=== PATIENT | male | born 1950 | race Caucasian/White ===

== ENCOUNTER 2017-05-01 17:39 | Emergency (ER) | payer OTHER ==
[2017-05-01 18:13] LABS: BASOPHIL# 0.1 X 10^3uL (0.0-0.1); BASOPHILS 0.8 % (0.0-2.0); EOSINOPHILS# 0.2 X 10^3uL (0.0-0.4); HEMATOCRIT 48.6 % (42.0-54.0); HEMOGLOBIN 16.1 g/dL (14.0-18.0); LYMPHOCYTES 26.5 % (20.0-40.0); LYMPHOCYTES# 2.2 X 10^3uL (0.8-3.8); MEAN CELL VOLUME 87.5 fL (80.0-100.0); MEAN CORPUS. HGB CONCENTRATION 33.2 g/dL (32.0-36.0); MEAN PLATELET VOLUME 8.3 fL (7.4-10.4); MONOCYTES 10.4 % (2.0-10.0); MONOCYTES# 0.8 X 10^3uL (0.2-1.0); NEUTROPHILS 59.3 % (54.0-75.0); NEUTROPHILS# 4.8 X 10^3uL (2.6-6.7); PLATELET COUNT 240 X 10^3uL (130-440); RED BLOOD COUNT 5.55 X 10^6uL (4.20-6.10); RED CELL DISTRIBUTION WIDTH 12.4 % (11.5-14.5); WHITE BLOOD COUNT 8.1 X 10^3uL (3.9-10.7)
[2017-05-01] MEDS ORDERED: NITROGLYCERIN 0.4 MG TAB.SUBL SUBLINGUAL ONE (18:24)
[2017-05-01] MEDS ORDERED: LIDOCAINE VISCOUS 2% 15 ML UDC ONE (18:24)
[2017-05-01] MEDS ORDERED: MAG-AL PLUS XS SUSP 30 ML UDC ONE (18:24)
[2017-05-01 18:28] LABS: BLOOD UREA NITROGEN 17 mg/dL (9-20); C-REACTIVE PROTEIN 7.7 mg/L (<10.0); CALCIUM 10.5 mg/dL (8.4-10.2); CHLORIDE 97 mmol/L (98-107); CREATINE KINASE 180 U/L (55-170); EST GLOMERULAR FILTRATION RATE > 60 mL/min; GLUCOSE 148 mg/dL (70-100); POTASSIUM 2.9 mmol/L (3.5-5.1); SODIUM 138 mmol/L (137-145)
[2017-05-01 18:38] LABS: TROPONIN I < 0.012 ng/mL (0.00-0.034)
[2017-05-01] MEDS ORDERED: KETOROLAC TROMETHAMINE 30 MG/ML VIAL ONE (18:50)
--- NOTE | 2017-05-01 18:50 | RADIOLOGY REPORT ---
HISTORY: Gastroesophageal reflux disease. COMPARISON: None. FINDINGS: 1 view of the chest were performed. The lungs are clear and well inflated. There is no evidence of pneumonia or pulmonary edema. There is no evidence of pleural effusion or pneumothorax. The heart is not enlarged. The bones appear unremarkable. IMPRESSION: No evidence of pneumonia or pulmonary edema. Final Electronic Signature: This report was electronically signed by Han Hassan MD on 7 6:48 PM. kory /
[2017-05-01] MEDS ORDERED: PANTOPRAZOLE 40 MG VIAL IV ONE (18:51)
[2017-05-01] MEDS ORDERED: NORMAL SALINE 100 ML IV ONE (18:51)
--- NOTE | 2017-05-01 19:23 | ER NURSING DOCUMENTATION ---
Nurse's Notes [facility] Name:Omar Zaragoza Age:67 yrs Sex:Male :1950 Arrival Date:05/01/2017 Time:17:39 BedTrauma-B Private MD: Diagnosis:Biliary Colic w/o Cholelithiasis w/o Obstruction;Hypokalemia Presentation: 05/01 17:45 Acuity: RICARDO 2 rh 18:15 Presenting complaint: Patient states: Pt has had constant "heartburn" since 0100 this rh AM. Along with this discomfort he has had SOB, nausea and some dizziness. Transition of care: Home. 18:15 Method Of Arrival: Private Vehicle rh Triage Assessment: 18:18 General: Appears in no apparent distress, Behavior is cooperative. Pain: Complains of rh pain in chest. EENT: Oral mucosa is dry. Neuro: Level of Consciousness is awake, alert, obeys commands, Oriented to person, place, time, event. Cardiovascular: Capillary refill < 3 seconds Reports Diaphoresis Nausea shortness of breath Rhythm is sinus rhythm Chest pain is described as vague, mild, quality is burning. Respiratory: Airway is patent Respiratory effort is even, unlabored, Respiratory pattern is regular, symmetrical, Breath sounds are clear bilaterally. Reports shortness of breath. GI: Abdomen is obese, Reports nausea, Denies diarrhea, vomiting. : No deficits noted. Derm: Skin is intact, is healthy with good turgor, Skin is pink, warm & dry. Historical: - Allergies: No known drug Allergies; - Home Meds: 1. levothyroxine oral 2. Omeprazole Oral 3. losartan oral 4. amitriptyline oral - PMHx: Hypertension; GERD; HYPOTHYROIDISM; ARTHRITIS; - PSHx: BACK SURGERY; VASECTOMY; - Tetanus: < 10 years. - Ebola Screening: : Patient negative for fever greater than or equal to 101.5 degrees Fahrenheit, and additional compatible Ebola Virus Disease symptoms. - Immunization history: Flu Vaccine < 1 year. - Social history: Smoking status: Patient states was never smoker of tobacco. Screenin:20 Infectious Disease Risk None. Abuse screen: Denies threats or abuse. Denies injuries rh from another. Nutritional screening: No deficits noted. Assessment: 18:20 See Triage Assessment done by same RN. rh Vital Signs: 18:00 BP 130 / 86; Pulse 82; Resp 19; Temp 98.7(TE); Pulse Ox 91% on R/A; Weight 102.06 kg; rh Height 5 ft. 8 in. (172.72 cm); Pain 0/10; 18:00 Body Mass Index 34.21 (102.06 kg, 172.72 cm) rh ED Course: 17:41 Patient arrived in ED. ama 17:45 Triage completed. rh 17:54 Solange Johnson is Primary Nurse. rh 17:55 nuclear monitoring technician on. Pulse ox on. NIBP on. rh 18:00 Notified ED Physician of patient's arrival and chief complaint. Dr. Brandon. rh 18:02 Inserted peripheral IV: 20 gauge in left antecubital area and blood collected. rh 18:20 Valuables Remains with patient Patient has correct armband on for positive rh identification. Placed in gown. Bed in low position. Call light in reach. Side rails up X 1. 18:25 Germán Brandon MD is Attending Physician. be Administered Medications: 18:14 Drug: Aspirin 81 mg, 4 tabs, total of 324 mg - Aspirin 81 mg; Route: PO; rh 18:53 Follow up: Response: No adverse reaction rh 18:15 Drug: GI Cocktail w/o Donnatol - (Maalox Suspension 30 ml, Lidocaine Liquid 2 % 15 ml); rh Route: PO; 19:17 Follow up: Response: Pain is decreased rh 18:21 Drug: NS 0.9% 1000 ml; Route: IV; Rate: bolus; Site: left antecubital; rh 19:00 Follow up: IV Status: Completed infusion rh 18:53 Drug: Toradol 30 mg; Route: IVP; Site: left antecubital; rh 19:18 Follow up: Response: Pain is decreased rh 18:53 Drug: Dilaudid 1 mg; Route: IVP; Site: left antecubital; rh 19:18 Follow up: Response: Pain is decreased rh 18:53 Drug: Protonix 40 mg; Route: IVPB; Site: left antecubital; rh 19:00 Follow up: IV Status: Completed infusion; IV Intake: 100ml rh 19:21 CANCELLED (Physician Discretion): Nitroglycerin 0.4 mg Sublingual every 5 minutes; sc1 every five minutes if needed x3 19:22 Drug: HYDROcodone-acetaminophen (5mg/325 mg) 1-2 tabs 1 tabs; Route: PO; sc1 Intake: 19:00 IV: 100ml; Total: 100ml. rh Outcome: 19:02 Discharge ordered by . be 19:22 Patient left the ED. sc1 Signatures: Sara Dudley RN RN sc1 Germán Brandon MD MD be Averdick, Andrew, Reg Reg ama Hofsess, Rachel
--- NOTE | 2017-05-01 19:23 | ER PHYSICIAN DOCUMENTATION ---
Physician Documentation [facility] Name:Omar Zaragoza Age:67 yrs Sex:Male :1950 Arrival Date:05/01/2017 Time:17:39 BedTrauma-B Private MD: Germán Wynne Disposition: 05/01/17 19:02 Discharged to Home/Self Care. Impression: Biliary Colic w/o Cholelithiasis w/o Obstruction, Hypokalemia. - Condition is Good. - Discharge Instructions: HYPOKALEMIA, DIET, High Potassium, DIET, Low Fat, Acute Cholecystitis - CHOLECYSTITIS, presumed. - Prescriptions for Hydrocodone- Acetaminophen 5-325 mg Oral Tablet - take 1 tablet by ORAL route every 6 hours As needed; 20 tablet. Potassium Chloride 20 meq Oral Packet - take 1 packet by ORAL route once daily 1 packet in 6 (six) ounces of water or juice; Take after meal; 30 packet. - Medical Reconciliation form form. - Follow up: Private Physician; When: 4- 6 days; Reason: Recheck today's complaints, Continuance of care. - Problem is an ongoing problem. - Symptoms have improved. HPI: 05/02 07:48 This 67 yrs old Male presents to ER via Private Vehicle with complaints of be HEARTBURN. 07:48 The patient presents with abdominal pain in the epigastric area. Onset: The be symptoms/episode began/occurred 2 month(s) ago. The symptoms do not radiate. Associated signs and symptoms: Pertinent positives: chest pain, nausea, Pertinent negatives: constipation, diarrhea, dysuria, fever, vomiting. This patient does not have any risk factors related to abdominal pain. The patient has experienced similar episodes in the past, and the symptoms today are exactly the same, never had GB US or biliary scan, but admits to fat intolerance and pain typically at bedtime or later. Historical: - Allergies: No known drug Allergies; - Home Meds: 1. levothyroxine oral 2. Omeprazole Oral 3. losartan oral 4. amitriptyline oral - PMHx: Hypertension; GERD; HYPOTHYROIDISM; ARTHRITIS; - PSHx: BACK SURGERY; VASECTOMY; - Tetanus: < 10 years. - Ebola Screening: : Patient negative for fever greater than or equal to 101.5 degrees Fahrenheit, and additional compatible Ebola Virus Disease symptoms. - Immunization history: Flu Vaccine < 1 year. - Social history: Smoking status: Patient states was never smoker of tobacco. ROS: 07:48 Abdomen/GI: Positive for abdominal pain, nausea, of the epigastric area and right upper be quadrant, Negative for vomiting, diarrhea, hematemesis, black/tarry stool. 07:48 All other systems are negative. Exam: 07:48 Constitutional: This is a well developed, well nourished patient who is awake, alert, be and in no acute distress. 07:48 Chest/axilla: Normal chest wall appearance and motion. Nontender with no deformity. be No lesions are appreciated. 07:48 Skin: Warm, dry with normal turgor. Normal color with no rashes, no lesions, and no evidence of cellulitis. 07:48 Cardiovascular: Rate: normal, Rhythm: regular, Pulses: no pulse deficits are appreciated. 07:48 Respiratory: the patient does not display signs of respiratory distress, Respirations: normal, Breath sounds: are normal, clear throughout. 07:48 Abdomen/GI: Palpation: mild abdominal tenderness, in the epigastric area and right upper quadrant. Vital Signs: 05/01 18:00 BP 130 / 86; Pulse 82; Resp 19; Temp 98.7(TE); Pulse Ox 91% on R/A; Weight 102.06 kg; rh Height 5 ft. 8 in. (172.72 cm); Pain 0/10; 18:00 Body Mass Index 34.21 (102.06 kg, 172.72 cm) rh MDM: 18:38 Patient medically screened. be 19:11 ECG:. be 05/02 07:48 Differential diagnosis: AAA, acute coronary syndrome, cholecystitis, Cholelithiasis, be gastroesophageal reflux disease, myocardia ischemia or infarction, pancreatitis, Pyelonephritis, urinary tract infection. Data reviewed: vital signs, nurses notes, lab test result(s), EKG, radiologic studies, and as a result, I will discharge patient, administer IV fluids, NS bolus, prescribe pain medication, Dilaudid, Toradol, Zofran and Protonix. 05/01 18:16 Order name: CBC AUTO DIF, MDIF/RMOR IF IND; Complete Time: 18:55 EDMS 05/01 18:54 Interpretation: Normal. be 05/01 18:29 Order name: LACTATE; Complete Time: 18:55 EDMS 05/01 18:54 Interpretation: Abnormal. be 07 18:29 Order name: DDIMER; Complete Time: 18:55 EDMS 07 18:54 Interpretation: Normal. be 05/01 18:38 Order name: BASIC METABOLIC PANEL; Complete Time: 18:55 EDMS 05/01 18:54 Interpretation: hypokalemia. be 05/01 18:38 Order name: MAGNESIUM; Complete Time: 18:55 EDMS 07 18:54 Interpretation: Normal. be 05/01 18:38 Order name: CREATINE KINASE; Complete Time: 18:55 EDMS 07 18:54 Interpretation: Normal Except. be 05/01 18:38 Order name: C-REACTIVE PROTEIN; Complete Time: 18:55 EDMS 07 18:54 Interpretation: Abnormal. be 05/01 18:38 Order name: TROPONIN I; Complete Time: 18:55 EDMS 07 18:55 Interpretation: Normal. be 05/01 18:47 Order name: LIPASE; Complete Time: 18:55 EDMS 05/01 18:55 Interpretation: Normal. be 05/01 18:52 Order name: CHEST; SINGLE VIEW [id number]; Complete Time: 18:55 EDMS 05/02 08:00 Interpretation: Normal. be 07 17:55 Order name: EKG - 12 Lead; Complete Time: 17:55 sc1 05/01 18:05 Order name: Iv Saline Lock; Complete Time: 18:08 rh 05/01 18:05 Order name: Place Patient On Monitor; Complete Time: 18:08 rh 05/01 18:05 Order name: Pulse Ox Continuous; Complete Time: 18:08 rh EC/06 19:11 Rate is 81 beats/min. Rhythm is regular, Normal Sinus Rhythm with No ectopy. QRS [place] be is Normal. NC interval is normal. QRS interval is normal. QT interval is normal. No Q waves. T waves are Normal. No ST changes noted. Clinical impression: No evidence of ischemia. Reviewed by me. Dispensed Medications: 18:14 Drug: Aspirin 81 mg, 4 tabs, total of 324 mg - Aspirin 81 mg; Route: PO; rh 18:53 Follow up: Response: No adverse reaction rh 18:15 Drug: GI Cocktail w/o Donnatol - (Maalox Suspension 30 ml, Lidocaine Liquid 2 % 15 ml); rh Route: PO; 19:17 Follow up: Response: Pain is decreased rh 18:21 Drug: NS 0.9% 1000 ml; Route: IV; Rate: bolus; Site: left antecubital; rh 19:00 Follow up: IV Status: Completed infusion rh 18:53 Drug: Toradol 30 mg; Route: IVP; Site: left antecubital; rh 19:18 Follow up: Response: Pain is decreased rh 18:53 Drug: Dilaudid 1 mg; Route: IVP; Site: left antecubital; rh 19:18 Follow up: Response: Pain is decreased rh 18:53 Drug: Protonix 40 mg; Route: IVPB; Site: left antecubital; rh 19:00 Follow up: IV Status: Completed infusion; IV Intake: 100ml rh 19:21 CANCELLED (Physician Discretion): Nitroglycerin 0.4 mg Sublingual every 5 minutes; sc1 every five minutes if needed x3 19:22 Drug: HYDROcodone-acetaminophen (5mg/325 mg) 1-2 tabs 1 tabs; Route: PO; sc1 Signatures: Sara Dudley RN RN ca1 Germán Brandon MD MD be Hofsess, Rachel
== END 2017-05-01 19:22 | disposition home or self-care (01) ==
LOC: ER 17:39
DX: K80.20 Calculus of gallbladder without cholecystitis without obstruction (principal); E87.6 Hypokalemia; R11.0 Nausea; I10 Essential (primary) hypertension; K21.9 Gastro-esophageal reflux disease without esophagitis; Z79.899 Other long term (current) drug therapy
CPT/HCPCS: 71010; 80048; 82550; 83605; 83690; 83735; 84484; 85025; 85379; 86140; 93005; 96361; 96374; 96375; 99284; J1170; J1885